=== PATIENT | female | born 1960 | race Caucasian/White ===

== ENCOUNTER 2020-07-25 19:22 | Emergency (ER) | payer OTHER ==
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
[2020-07-26 02:27] VITALS: BP 145/86; PULSE 90
== END 2020-07-25 21:00 | disposition home or self-care (01) ==
LOC: MW.ED 19:22
DX: S13.4XXA Sprain of ligaments of cervical spine, initial encounter (principal); Z88.2 Allergy status to sulfonamides; V49.59XA Passenger injured in collision with other motor vehicles in traffic accident, initial encounter
CPT/HCPCS: 72125; 72125-26; 99284-25